=== PATIENT | male | born 1980 | race African-American/Black ===

== ENCOUNTER 2021-12-20 12:53 | Emergency (ER) | payer OTHER, MEDICAID ==
[~2021-12-20] VITALS: Ht 172.7 cm; Wt 59.0 kg
[2021-12-20] MEDS ORDERED: CEFTRIAXONE SODIUM 500 MG/VIAL IM ONE (15:45)
[2021-12-20] MEDS ORDERED: CEFTRIAXONE SODIUM 500 MG/VIAL IM NR (16:00)
[2021-12-20] MEDS ORDERED: NEOM28.43 TP (16:29)
[2021-12-20] MEDS ORDERED: DOXY100C5 MT (16:29)
[2021-12-20 17:20] VITALS: BP 116/75
[2021-12-24 04:09] LABS: NEISSERIA GONORRHOEAE NAA Negative (Negative)
== END 2021-12-20 17:21 | disposition home or self-care (01) ==
LOC: ER 13:04
DX: N48.1 Balanitis (principal); A64 Unspecified sexually transmitted disease; I10 Essential (primary) hypertension
CPT/HCPCS: 87491; 87591; 96372; 99283; J0696

== ENCOUNTER 2022-02-23 09:14 | Emergency (ER) | payer OTHER, MEDICAID ==
[~2022-02-23] VITALS: Ht 172.7 cm; Wt 82.0 kg
[~2022-02-23 09:14] MED LIST: DOXY100C5 MT; NEOM28.43 TP
[2022-02-23] MEDS ORDERED: KETOROLAC 60MG/2ML VIAL IM STA (14:21)
[2022-02-23 14:32] VITALS: BP 167/100
== END 2022-02-23 15:06 | disposition left against medical advice (07) ==
LOC: ER 09:14
DX: M79.605 Pain in left leg (principal); I10 Essential (primary) hypertension
CPT/HCPCS: 96372; 99283; J1885

== ENCOUNTER 2022-04-26 15:58 | Emergency (ER) | payer OTHER, MEDICAID ==
[~2022-04-26] VITALS: Ht 167.6 cm; Wt 75.0 kg
[2022-04-26 16:06] VITALS: BP 162/105
[2022-04-26 20:33] LABS: CLARITY URINE CLEAR (CLEAR); COLOR URINE YELLOW (YELLOW); KETONES URINE TRACE (NEGATIVE); LEUKOCYTE ESTERASE URINE NEGATIVE (NEGATIVE); NITRITE URINE NEGATIVE (NEGATIVE); OCCULT BLOOD URINE NEGATIVE (NEGATIVE); PH URINE 5.5 (4.5-8.0); PROTEIN URINE TRACE (NEGATIVE); SPECIFIC GRAVITY URINE 1.024 (1.005-1.030); UROBILINOGEN URINE 0.2 E.U./dL (0.2-1.0)
[2022-04-29 04:07] LABS: NEISSERIA GONORRHOEAE NAA Negative (Negative)
== END 2022-04-26 21:08 | disposition home or self-care (01) ==
LOC: ER 15:58
DX: R30.0 Dysuria (principal); R00.0 Tachycardia, unspecified; I10 Essential (primary) hypertension
CPT/HCPCS: 81003; 87491; 87591; 99283

== ENCOUNTER 2022-10-21 16:18 | Emergency (ER) | payer OTHER, MEDICAID ==
[~2022-10-21] VITALS: Ht 172.7 cm; Wt 81.6 kg
[2022-10-21] MEDS ORDERED: IBUP-2028 MT (19:06)
[2022-10-21] MEDS ORDERED: KETOROLAC 60MG/2ML VIAL IM ONE (19:15)
[2022-10-21 19:32] VITALS: BP 184/125
== END 2022-10-21 19:34 | disposition home or self-care (01) ==
LOC: ER 16:18
DX: S16.1XXA Strain of muscle, fascia and tendon at neck level, initial encounter (principal); M79.10 Myalgia, unspecified site; X58.XXXA Exposure to other specified factors, initial encounter; Y93.89 Activity, other specified; Y92.89 Other specified places as the place of occurrence of the external cause; Y99.8 Other external cause status
CPT/HCPCS: 96372; 99283; J1885

== ENCOUNTER 2023-09-06 20:38 | Emergency (ER) | payer OTHER, MEDICAID ==
[~2023-09-06] VITALS: Ht 172.7 cm; Wt 82.0 kg
[~2023-09-06 20:38] MED LIST changes: +IBUP-2028 MT
[2023-09-06 21:02] VITALS: TEMP 98; O2SAT 100
[2023-09-06 21:42] LABS: BASOPHILS % 0.8 % (0.0-2.0); EOSINOPHILS % 0.4 % (0.0-5.0); HEMATOCRIT. 41.7 % (42.0-52.0); LYMPHOCYTES % 17.5 % (20.0-50.0); MEAN CORPUSCULAR HEMOGLOBIN 29.7 pg (28.0-32.0); MEAN CORPUSCULAR HGB CONC 33.6 g/dL (31.0-37.0); MEAN CORPUSCULAR VOLUME 88.5 fL (80.0-94.0); MEAN PLATELET VOLUME 8.2 fl (7.4-10.4); MONOCYTES % 4.1 % (2.0-8.0); NEUTROPHILS % 77.2 % (40.0-76.0); PLATELET 267 x1000/uL (130-400); RED BLOOD CELL COUNT 4.72 mill/uL (4.7-6.1); RED CELL DISTRIBUTION WIDTH 13.7 % (11.6-14.6); WHITE BLOOD COUNT 11.5 x1000/uL (4.5-11.0)
[2023-09-06 21:47] LABS: CHLORIDE 108 mEq/L (98-107); POTASSIUM 3.7 mEq/L (3.5-5.1); SODIUM 139 mEq/L (136-145)
[2023-09-06 21:48] LABS: CARBON DIOXIDE 24 mEq/L (21-32)
[2023-09-06 21:49] LABS: CALCIUM 9.3 mg/dL (8.7-10.4)
[2023-09-06 21:53] LABS: CREATININE 1.1 mg/dL (0.6-1.3); GLUCOSE 107 mg/dL (70-105)
[2023-09-06 21:54] LABS: UREA NITROGEN BLOOD 11 mg/dL (9-23)
[2023-09-06 21:55] LABS: ALANINE AMINOTRANSFERASE 18 IU/L (10-49); ALBUMIN 4.7 g/dL (3.2-4.8); ASPARTATE AMINOTRANSFERASE 20 IU/L (<34); TROPONIN I HIGH SENSITIVITY 11 ng/L (3.0-53)
[2023-09-06 21:56] LABS: BILIRUBIN TOTAL 0.4 mg/dL (0.1-1.0); PROTEIN TOTAL 8.4 g/dL (6.0-8.3)
[2023-09-07] MEDS: DIPHENHYDRAMINE 50MG/ML VIAL IV NR (00:36)
[2023-09-07] MEDS: PROCHLORPERAZINE 10MG/2ML VIAL IV NR (00:36)
[2023-09-07 03:38] VITALS: BP 135/86; PULSE 64; RESP 18
== END 2023-09-07 03:42 | disposition home or self-care (01) ==
LOC: ER 20:38
DX: R51.9 Headache, unspecified (principal); R11.2 Nausea with vomiting, unspecified; I10 Essential (primary) hypertension; Z98.890 Other specified postprocedural states
CPT/HCPCS: 99285; 80053; 83690; 85025; 84484; 36415; 93005; 74176; 96374; 96375; J1200; J0780

== ENCOUNTER 2024-10-08 10:02 | Emergency (ER) | payer MEDICARE, MEDICAID ==
[~2024-10-08] VITALS: Ht 172.7 cm; Wt 100.0 kg
[2024-10-08 10:06] VITALS: BP 166/110; PULSE 75; RESP 16; TEMP 36.9; O2SAT 100
[2024-10-08 10:46] LABS: CLARITY URINE CLEAR (CLEAR); COLOR URINE YELLOW (YELLOW); GLUCOSE URINE NEGATIVE (NEGATIVE); KETONES URINE NEGATIVE (NEGATIVE); LEUKOCYTE ESTERASE URINE NEGATIVE (NEGATIVE); NITRITE URINE NEGATIVE (NEGATIVE); OCCULT BLOOD URINE NEGATIVE (NEGATIVE); PH URINE 5.5 (4.5-8.0); PROTEIN URINE 1+ (NEGATIVE); SPECIFIC GRAVITY URINE 1.019 (1.005-1.030); UROBILINOGEN URINE 0.2 E.U./dL (0.2-1.0)
[2024-10-08 10:58] LABS: BASOPHILS % 0.9 % (0.0-2.0); EOSINOPHILS % 1.2 % (0.0-5.0); HEMATOCRIT. 46.8 % (42.0-52.0); HEMOGLOBIN. 15.6 g/dL (14.0-18.0); LYMPHOCYTES % 33.6 % (20.0-50.0); MEAN CORPUSCULAR HEMOGLOBIN 29.5 pg (28.0-32.0); MEAN CORPUSCULAR HGB CONC 33.3 g/dL (31.0-37.0); MEAN CORPUSCULAR VOLUME 88.6 fL (80.0-94.0); MEAN PLATELET VOLUME 8.1 fl (7.4-10.4); MONOCYTES % 5.7 % (2.0-8.0); NEUTROPHILS % 58.6 % (40.0-76.0); PLATELET 281 x1000/uL (130-400); RED BLOOD CELL COUNT 5.28 mill/uL (4.7-6.1); RED CELL DISTRIBUTION WIDTH 14.1 % (11.6-14.6); WHITE BLOOD COUNT 7.7 x1000/uL (4.5-11.0)
[2024-10-08 11:04] LABS: CHLORIDE 106 mEq/L (98-107); POTASSIUM 4.1 mEq/L (3.5-5.1); SODIUM 138 mEq/L (136-145)
[2024-10-08 11:05] LABS: CALCIUM 9.4 mg/dL (8.7-10.4); CARBON DIOXIDE 25 mEq/L (21-32)
[2024-10-08 11:08] LABS: BACTERIA URINE NONE SEEN; HYALINE CASTS URINE 0-5 /lpf; RBC URINE 0-2 /hpf (0-2); SQUAMOUS EPITHELIAL CELL URINE RARE /lpf (RARE/1+); WBC URINE 0-2 /hpf (0-2); YEAST URINE NONE SEEN
[2024-10-08 11:10] LABS: CREATININE 1.2 mg/dL (0.6-1.3); GLUCOSE 90 mg/dL (70-105); UREA NITROGEN BLOOD 12 mg/dL (9-23)
== END 2024-10-08 11:20 | disposition home or self-care (01) ==
LOC: ER 10:02
DX: K62.5 Hemorrhage of anus and rectum (principal); I10 Essential (primary) hypertension
CPT/HCPCS: 36415; 80048; 81003; 85025; 86850; 86900; 99283

== ENCOUNTER 2024-11-26 08:53 | Emergency (ER) | payer MEDICAID ==
[~2024-11-26] VITALS: Ht 172.7 cm; Wt 80.0 kg
[2024-11-26 09:06] VITALS: O2SAT 100
[2024-11-26] MEDS: PREDNISONE 20MG TABLET PO ONE (10:05)
[2024-11-26] MEDS: HYDROCODONE/ACETAMINOPHEN 7.5/325MG TABLET PO ONE (10:05)
[2024-11-26] MEDS: IBUPROFEN 800MG TABLET PO ONE (10:05)
[2024-11-26 10:39] LABS: CLARITY URINE CLEAR (CLEAR); COLOR URINE YELLOW (YELLOW); GLUCOSE URINE NEGATIVE (NEGATIVE); KETONES URINE NEGATIVE (NEGATIVE); LEUKOCYTE ESTERASE URINE NEGATIVE (NEGATIVE); NITRITE URINE NEGATIVE (NEGATIVE); OCCULT BLOOD URINE NEGATIVE (NEGATIVE); PH URINE 6.0 (4.5-8.0); PROTEIN URINE NEGATIVE (NEGATIVE); SPECIFIC GRAVITY URINE 1.019 (1.005-1.030); UROBILINOGEN URINE 0.2 E.U./dL (0.2-1.0)
[2024-11-26] MEDS ORDERED: IBUP-1525 MT (11:09)
[2024-11-26] MEDS ORDERED: P50 MT (11:09)
[2024-11-26] MEDS ORDERED: HYDR-4001 MT (11:09)
[2024-11-26 12:06] VITALS: BP 155/95; PULSE 60; RESP 16; TEMP 37.1; O2SAT 100
== END 2024-11-26 12:09 | disposition home or self-care (01) ==
LOC: ER 09:24
DX: M54.50 Low back pain, unspecified (principal); I10 Essential (primary) hypertension; Z79.899 Other long term (current) drug therapy; Z98.890 Other specified postprocedural states
CPT/HCPCS: 99284; 81003; J7512